=== PATIENT | female | born 1955 | race Caucasian/White ===

== ENCOUNTER 2022-06-27 21:57 | Emergency (ER) | payer MEDICARE ==
[~2022-06-27] VITALS: Ht 162.6 cm; Wt 59.0 kg
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
[2022-06-27] MEDS ORDERED: IBUPROFEN 600 MG TABLET PO ONE (22:30)
[2022-06-27] MEDS ORDERED: HYDROCODONE/APAP 5/325MG TABLET PO ONE (22:30)
[2022-06-27] MEDS ORDERED: TDAP [DIPH/PERTUSSIS/TET] 0.5 ML VIAL IM ONE ×2 (22:30→22:41)
[2022-06-27] MEDS ORDERED: SILVER SULFADIAZINE CREAM 25 GM TUBE TP ONE (22:30)
[2022-06-27] MEDS ORDERED: IBUP-1957 PO (22:39)
[2022-06-27] MEDS ORDERED: SILVER SULFADIAZINE CREAM 25 GM TUBE ONE (22:40)
[2022-06-27] MEDS ORDERED: HYDROCODONE/APAP 5/325MG TABLET ONE (22:40)
[2022-06-27] MEDS ORDERED: IBUPROFEN 600 MG TABLET ONE (22:41)
[2022-06-27] MEDS ORDERED: SILV20CR13 TP (22:42)
[2022-06-27] MEDS ORDERED: HYDR-4209 PO (23:12)
--- NOTE | 2022-06-27 23:12 | NUR ---
Patient discharged to home in stable condition. Written and verbal after care instructions given. Patient verbalizes understanding of instruction.
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
[2022-06-27 23:19] VITALS: BP 115/65
== END 2022-06-27 23:12 | disposition home or self-care (01) ==
LOC: ER 22:00
DX: T23.202A Burn of second degree of left hand, unspecified site, initial encounter (principal); Z79.899 Other long term (current) drug therapy; X10.2XXA Contact with fats and cooking oils, initial encounter; Y93.G3 Activity, cooking and baking; Y92.89 Other specified places as the place of occurrence of the external cause; Y99.8 Other external cause status
CPT/HCPCS: 90715